=== PATIENT | female | born 1975 | race Caucasian/White ===

== ENCOUNTER 2016-08-30 13:18 | Outpatient (CLI) | payer OTHER | END 2016-08-30 13:19 | disposition home or self-care (01) | DX: Z00.00 Encounter for general adult medical examination without abnormal findings (principal); E78.5 Hyperlipidemia, unspecified ==

== ENCOUNTER 2016-09-13 09:15 | Outpatient (CLI) | payer OTHER | END 2016-09-13 09:16 | disposition home or self-care (01) | DX: Z12.31 Encounter for screening mammogram for malignant neoplasm of breast (principal) ==

== ENCOUNTER 2016-09-13 19:55 | Outpatient (CLI) | payer OTHER | END 2016-09-13 19:56 | disposition home or self-care (01) | DX: R94.6 Abnormal results of thyroid function studies (principal) ==

== ENCOUNTER 2016-11-01 08:33 | Outpatient (CLI) | payer OTHER | END 2016-11-01 08:34 | disposition home or self-care (01) | DX: I10 Essential (primary) hypertension (principal) ==